=== PATIENT | male | born 1975 | race Caucasian/White ===

== ENCOUNTER 2018-10-16 21:35 | Emergency (ER) | payer SELFPAY ==
[~2018-10-16] VITALS: Ht 182.9 cm; Wt 108.9 kg
[2018-10-16 21:50] VITALS: Ht 182.9 cm; Wt 108.9 kg
[2018-10-16] MEDS ORDERED: ROBAXIN500 MG PO (22:30)
[2018-10-16 23:30] VITALS: BP 120/67
== END 2018-10-16 23:30 | disposition home or self-care (01) ==
LOC: D.ER 21:35
DX: S39.012A Strain of muscle, fascia and tendon of lower back, initial encounter (principal); V43.62XA Car passenger injured in collision with other type car in traffic accident, initial encounter; Y93.89 Activity, other specified; Y92.410 Unspecified street and highway as the place of occurrence of the external cause; S16.1XXA Strain of muscle, fascia and tendon at neck level, initial encounter